=== PATIENT | male | born 1965 | race Hispanic/Latino ===

== ENCOUNTER 2017-12-10 08:59 | Day surgery (SDC) | payer OTHER ==
[~2017-12-10] VITALS: Ht 177.8 cm; Wt 136.0 kg
[~2017-12-10 08:59] MED LIST: SODIUM CHLORIDE 0.9% 1000ML 1,000 ML IV ONE
[2017-12-10] MEDS ORDERED: PYRI60TA PO (11:18)
[2017-12-10] MEDS ORDERED: SIMV20TA6 PO (11:18)
[2017-12-10] MEDS ORDERED: ERGO2000 PO (11:18)
[2017-12-10] MEDS ORDERED: FISH1CAP27 PO (11:18)
[2017-12-10] MEDS ORDERED: MULT-1203 PO (11:18)
[2017-12-10] MEDS ORDERED: tumeric PO (11:18)
[2017-12-10] MEDS ORDERED: LOSA1TAB42 PO (11:18)
[2017-12-10] MEDS ORDERED: MAGN250T2 PO (11:18)
[2017-12-10] MEDS ORDERED: PROPOFOL 10 MG/ML 20ML VIAL IV ONE ×2 (11:19)
[2017-12-10 11:29] VITALS: BP 92/56
== END 2017-12-10 12:15 | disposition home or self-care (01) ==
LOC: DAH 08:59 → ENDO 08:59
PROVIDERS: ATTEND Internal Medicine Gastroenterology
DX: Z12.11 Encounter for screening for malignant neoplasm of colon (principal); K63.5 Polyp of colon; D12.4 Benign neoplasm of descending colon; K62.1 Rectal polyp; E78.4 Other hyperlipidemia; I10 Essential (primary) hypertension; G47.00 Insomnia, unspecified; E78.5 Hyperlipidemia, unspecified; Z79.899 Other long term (current) drug therapy; Z68.41 Body mass index [BMI] 40.0-44.9, adult
CPT/HCPCS: 45380; 45385; A4606; J2704 ×2; J7030